=== PATIENT | female | born 1990 ===

== ENCOUNTER 2025-02-22 11:35 | Outpatient (CLI) | payer OTHER ==
[2025-02-22] MEDS ORDERED: SYNTHROID88 MCG PO (18:51)
[2025-02-22] MEDS ORDERED: ADDERALL 10 MG10 MG (18:51)
[2025-02-22] MEDS ORDERED: AIRSUPRA 90-810.7 GM (18:53)
[2025-02-22] MEDS ORDERED: BUPROPION XL150 MG (18:58)
[2025-02-22] MEDS ORDERED: PRENATA CHEWAB1 EACH (18:59)
== END 2025-02-22 12:54 | disposition home or self-care (01) ==
LOC: NST 11:35
PROVIDERS: ATTEND Obstetrics & Gynecology Gynecology
DX: Z34.83 Encounter for supervision of other normal pregnancy, third trimester (principal)

== ENCOUNTER 2025-02-22 15:15 | Inpatient (IN) | payer OTHER ==
[~2025-02-22] VITALS: Ht 157.5 cm; Wt 104.3 kg
[2025-02-22] MEDS ORDERED: ADDERALL 10 MG10 MG (18:51)
[2025-02-22] MEDS ORDERED: SYNTHROID88 MCG PO (18:51)
[2025-02-22] MEDS ORDERED: AIRSUPRA 90-810.7 GM (18:53)
[2025-02-22] MEDS ORDERED: BUPROPION XL150 MG (18:58)
[2025-02-22] MEDS ORDERED: PRENATA CHEWAB1 EACH (18:59)
[2025-02-25 13:13] VITALS: BP 136/92
[2025-02-25 13:56] LABS: BASO % 0.2 % (0.1-1.2); EOS # 0.04 (0.04-0.54); EOS % 0.3 % (0.7-7.0); LYMPH # 1.67 (1.18-3.74); LYMPH % 14.2 % (19.3-53.1); MEAN PLATELET VOLUME 11.70 fl (9.4-12.4); MONO # 0.76 (0.24-0.82); MONO % 6.5 % (4.7-12.5); NEUT # 9.13 (1.56-6.13); NEUT % 77.9 % (34.0-71.1); RED CELL DISTRIBUTION WIDTH 13.9 % (11.6-14.4)
[2025-02-25 13:57] LABS: URINE APPEARANCE Clear; URINE BILIRRUBIN Negative (NEGATIVE); URINE BLOOD Negative; URINE COLOR Yellow; URINE GLUCOSE Negative (NEGATIVE); URINE KETONE 15 (NEGATIVE); URINE LEUKOCYTE Negative; URINE NITRATE Negative; URINE PROTEIN 30 (NEGATIVE); URINE UROBILINOGEN 1.0 E.U./dl
[2025-02-25 14:01] LABS: URINE BACTERIA 593.8 uL (0.0-1933); URINE EPITHELIAL CELLS 81.9 uL (0.0-38.8); URINE WBC 13.2 uL (0.0-23.2)
[2025-02-25 14:29] LABS: INR 0.98
[2025-02-25 14:30] LABS: URINE CAST 0.00 uL (0.0-1.40); URINE RBC 1.0 uL (0.0-20.8)
[2025-02-25 14:44] LABS: ALT/SGPT 23.0 U/L (12-78); AST/SGOT 16.0 U/L (15-37); BILIRUBIN TOTAL 0.38 mg/dL (0.3-1.2); BUN CREA RATIO 14.0 (7.0-25.0); CREATININE SERUM 0.42 mg/dL (0.55-1.02); GFR 173.76; GLOBULINA 3.7 G/DL (2.4-3.5); GLUCOSE FASTING 101.0 mg/dL (65-100); OSMOLALITY SERUM 273.0 MOSM/KG (275-295)
[2025-02-25] MEDS ORDERED: MISOPROSTOL 25 MCG TABLET VAG ONE (15:15)
[2025-02-25] MEDS ORDERED: RINGERS SOLUTION,LACTATED 1,000 ML IV SCH (15:15)
[2025-02-25 15:27] VITALS: BP 139/94
[2025-02-25 18:55] VITALS: BP 125/72
[2025-02-25 20:53] VITALS: BP 128/77
[2025-02-25 23:12] VITALS: BP 133/79
[2025-02-26] VITALS (17 sets, daily range): BP systolic 119–157; BP diastolic 68–115; O2SAT 100
[2025-02-26] MEDS ORDERED: OXYTOCIN 500 ML IV ONE (08:15)
[2025-02-26] MEDS ORDERED: ACETAMINOPHEN 500 MG GEL..CAP PO PRN (08:45)
[2025-02-26] MEDS ORDERED: LEVOTHYROXINE SODIUM 50 MCG TABLET PO SCH (09:00)
[2025-02-26] MEDS ORDERED: BUPROPION HCL 150 MG TABLET.SA PO SCH (09:00)
[2025-02-26] MEDS ORDERED: CHLORHEXIDINE GLUCONATE 120 ML BOTTLE TOP ONE ×2 (12:45→20:08)
[2025-02-26] MEDS ORDERED: MORPHINE SULFATE 4 MG/ML CARTRIDGE IV PRN (12:45)
[2025-02-26] MEDS ORDERED: PROMETHAZINE HCL 25 MG/ML AMPUL IV NR (14:00)
[2025-02-26] MEDS ORDERED: NALOXONE HCL 0.4 MG/ML AMPUL ONE (19:54)
[2025-02-26] MEDS ORDERED: MORPHINE SULFATE 2 MG/ML SYRINGE IV ONE (20:00)
[2025-02-26] MEDS ORDERED: LIDOCAINE HCL 1% 10ML VIAL ONE (20:08)
[2025-02-26] MEDS ORDERED: OXYTOCIN 20 UNITS/1000ML RL PIGGYBAG IV ONE (20:08)
[2025-02-26] MEDS ORDERED: ERYTHROMYCIN BASE OPHT 1GM EACH TUBE OP ONE ×2 (20:08→21:15)
[2025-02-26] MEDS ORDERED: OXYTOCIN 1,000 ML IV SCH (20:45)
[2025-02-26] MEDS ORDERED: CHLORHEXIDINE GLUCONATE 120 ML BOTTLE TOP SCH (20:45)
[2025-02-27] VITALS: BP 124/74
[2025-02-27 06:18] LABS: BASO % 0.2 % (0.1-1.2); EOS # 0.02 (0.04-0.54); EOS % 0.1 % (0.7-7.0); LYMPH # 1.72 (1.18-3.74); LYMPH % 9.5 % (19.3-53.1); MEAN PLATELET VOLUME 11.70 fl (9.4-12.4); MONO # 1.24 (0.24-0.82); MONO % 6.8 % (4.7-12.5); NEUT # 14.98 (1.56-6.13); NEUT % 82.7 % (34.0-71.1); RED CELL DISTRIBUTION WIDTH 13.8 % (11.6-14.4)
[2025-02-27 08:13] VITALS: BP 121/74
[2025-02-27] MEDS ORDERED: PNV,CALCIUM 72/IRON/FOLIC ACID 1 TAB TABLET PO SCH (09:00)
[2025-02-27] MEDS ORDERED: DOCUSATE SODIUM 100MG CAP PO SCH (09:00)
[2025-02-27 13:00] VITALS: BP 121/78
[2025-02-27 16:00] VITALS: BP 142/98
[2025-02-27] MEDS ORDERED: LABETALOL HCL 100 MG TABLET PO SCH ×2 (18:58→21:00)
[2025-02-27 19:16] VITALS: BP 130/80
[2025-02-28 00:34] VITALS: BP 145/86
[2025-02-28 08:52] VITALS: BP 134/85
== END 2025-02-28 13:24 | disposition home or self-care (01) | DRG 807 ==
LOC: EDUNIT# 15:15 → LDR 02-25 12:52 → OB/GYN 02-26 20:51 → SURG 03-01 15:15
PROVIDERS: Obstetrics & Gynecology Gynecology; ADMIT Obstetrics & Gynecology; ATTEND Obstetrics & Gynecology
PROC: 4A1HXCZ Monitoring of Products of Conception, Cardiac Rate, External Approach (ICD-10-PCS; 2025-02-25)
PROC: 10E0XZZ Delivery of Products of Conception, External Approach (ICD-10-PCS; principal; 2025-02-26)
DX: O80 Encounter for full-term uncomplicated delivery (principal); Z37.0 Single live birth; Z3A.38 38 weeks gestation of pregnancy

== ENCOUNTER 2025-02-22 18:31 | Outpatient (CLI) | payer OTHER ==
[2025-02-22 18:07] VITALS: BP 128/91
[2025-02-22] MEDS ORDERED: ADDERALL 10 MG10 MG (18:51)
[2025-02-22] MEDS ORDERED: SYNTHROID88 MCG PO (18:51)
[2025-02-22] MEDS ORDERED: AIRSUPRA 90-810.7 GM (18:53)
[2025-02-22] MEDS ORDERED: BUPROPION XL150 MG (18:58)
[2025-02-22] MEDS ORDERED: PRENATA CHEWAB1 EACH (18:59)
[2025-02-22] MEDS ORDERED: PNV,CALCIUM 72/IRON/FOLIC ACID 1 TAB TABLET PO SCH (20:30)
[2025-02-22] MEDS ORDERED: BUPROPION HCL 150 MG TABLET.SA PO SCH (20:30)
[2025-02-22] MEDS ORDERED: GUAIFENESIN 200 MG/10 ML BLIST.PACK PO PRN (20:45)
[2025-02-22] MEDS ORDERED: ACETAMINOPHEN 325 MG TABLET PO PRN (21:00)
[2025-02-22] MEDS ORDERED: DIPHENHYDRAMINE HCL 50 MG CAPSULE PO ONE (21:00)
[2025-02-22 23:36] VITALS: BP 127/82
[2025-02-23 03:45] VITALS: BP 105/73; O2SAT 100
[2025-02-23] MEDS ORDERED: LEVOTHYROXINE SODIUM 50 MCG TABLET PO SCH (06:00)
[2025-02-23 07:15] VITALS: BP 119/83
[2025-02-23 11:16] VITALS: BP 19/83
== END 2025-02-23 11:16 | disposition home or self-care (01) ==
LOC: OBS/DEL 18:31
PROVIDERS: ATTEND Obstetrics & Gynecology
DX: O26.893 Other specified pregnancy related conditions, third trimester (principal); Z3A.37 37 weeks gestation of pregnancy